=== PATIENT | male | born 1955 | race Caucasian/White ===

== ENCOUNTER 2017-01-11 20:43 | Emergency (ER) | payer BC ==
[2017-01-11] MEDS ORDERED: Sodium Chloride 0.9% 10 ML Syringe FLUSH PRN (20:57)
[2017-01-11] MEDS ORDERED: Aspirin 81 MG Tab.Chew PO ONE (20:57)
[2017-01-11] MEDS ORDERED: Sodium Chloride 0.9% 1,000 ML IV SCH (21:00)
[2017-01-11] MEDS ORDERED: Nitroglycerin 0.4 MG Tab.SL ONE (21:00)
[2017-01-11] MEDS: Nitroglycerin 0.4 MG Tab.SL SL PRN ×3 (21:01→21:12)
[2017-01-11] MEDS ORDERED: Clopidogrel 75 MG Tab PO ONE (21:02)
[2017-01-11] MEDS ORDERED: LORazepam 2 MG/ML MDV IVPUSH ONE (21:05)
[2017-01-11] MEDS ORDERED: Heparin Sodium 5,000 Units/ML Vial ONE (21:10)
[2017-01-11] MEDS ORDERED: Heparin Sodium/D5W 500 ML ONE (21:10)
[2017-01-11] MEDS ORDERED: Nitroglycerin/D5W 25 MG/250 ML BOTTLE ONE (21:17)
[2017-01-11 21:50] VITALS: BP 131/72
--- NOTE | 2017-01-11 21:55 | EDM.PDOC ---
ED HPI GENERAL MEDICAL PROBLEM - General Chief Complaint: Chest Pain Stated Complaint: CHEST PAIN Time Seen by Provider: 01/11/17 20:55 Source of Information: Reports: Patient History Limitations: Reports: No Limitations - History of Present Illness INITIAL COMMENTS - FREE TEXT/NARRATIVE: This gentleman comes in complaining of sudden onset of shortness of breath chest pain and nausea about 30 minutes ago. Also complains of some back pain which is the same as he had in 2002 prior to having stents. He was seen in clinic yesterday had an EKG which was normal but had some vague symptoms prior to this so an exercise tolerance test has been planned for a week from now. There is no history of an SD. Pain presently 10 out of 10 Chest Pain Score (Numeric/FACES): 5 - Related Data Allergies Allergy/AdvReac Type Severity Reaction Status Date / Time ezetimibe AdvReac Muscle Verified 02/08/13 08:52 [From Vytorin 10-10] Aches simvastatin AdvReac Muscle Verified 02/08/13 08:52 [From Vytorin 10-10] Aches Home Meds: Home Meds Naproxen Sodium [Aleve] 220 mg PO BID PRN 02/06/13 [History] oxyCODONE HCl/Acetaminophen [Roxicet 5-325 Tablet] 1 each PO Q4HR PRN 02/06/13 [ History] Omeprazole 20 mg PO DAILY 01/10/17 [History] amLODIPine [Norvasc] 5 mg PO DAILY 01/10/17 [History] Past Medical History Cardiovascular History: Reports: Hypertension, Stents Gastrointestinal History: Reports: GERD Social & Family History - Tobacco Use Smoking Status *Q: Never Smoker - Caffeine Use Caffeine Use: Reports: None - Alcohol Use Days Per Week of Alcohol Use: 2 Number of Drinks Per Day: 2 Total Drinks Per Week: 4 - Recreational Drug Use Recreational Drug Use: No ED ROS GENERAL - Review of Systems Review Of Systems: ROS reveals no pertinent complaints other than HPI. ED EXAM, GENERAL - Physical Exam Exam: See Below Exam Limited By: No Limitations General Appearance: Alert, WD/WN, Moderate Distress Eye Exam: Bilateral Eye: Normal Inspection Nose: Normal Inspection Throat/Mouth: Normal Oropharynx Head: Atraumatic Neck: Normal Inspection Respiratory/Chest: Lungs Clear Cardiovascular: Normal Peripheral Pulses, Regular Rate, Rhythm, No Murmur Peripheral Pulses: 2+: Radial (L), Radial (R), Posterior Tibial (L), Posterior Tibial (R) GI/Abdominal: Soft, Non-Tender Back Exam: Normal Inspection Extremities: Normal Inspection Neurological: Alert, Oriented Psychiatric: Normal Affect Skin Exam: Warm, Dry Course - Vital Signs Last Recorded V/S: Last Vital Signs Temp 37.4 C 01/11/17 21:33 Pulse 75 01/11/17 21:33 Resp 18 01/11/17 21:33 BP 133/59 L 01/11/17 21:33 Pulse Ox 95 01/11/17 21:33 - Orders/Labs/Meds Orders: Active Orders 24 hr Category Date Time Status EKG Documentation Completion [RC] ASDIRECTED Care 01/11/17 20:58 Active Chest 1V Frontal [CR] Urgent Exams 01/11/17 20:56 Taken Nitroglycerin 25 MG in D5W @ 10 MCG/MIN(250ml) Premix Med 01/11/17 22:00 Ordered Nitroglycerin/D5W [Nitroglycerin 25 MG/D5W 250 ML] 25 mg in 250 ml IV TITRATE Sodium Chloride 0.9% [Normal Saline] 1,000 ml Med 01/11/17 21:00 Active IV ASDIRECTED Sodium Chloride 0.9% [Saline Flush] Med 01/11/17 20:57 Active 10 ml FLUSH ASDIRECTED PRN Saline Lock Insert [OM.PC] Urgent Oth 01/11/17 20:56 Ordered EKG 12 Lead [EK] Urgent Ther 01/11/17 20:58 Ordered Medication Orders Sodium Chloride (Normal Saline) 1,000 mls @ 125 mls/hr IV ASDIRECTED MACHO Last Admin: 01/11/17 21:01 Dose: 125 mls/hr Nitroglycerin/Dextrose (Nitroglycerin 25 Mg/D5w 250 Ml) 25 mg in 250 mls @ 6 mls/hr IV TITRATE MACHO; 10 MCG/MIN PRN Reason: Protocol Sodium Chloride (Saline Flush) 10 ml FLUSH ASDIRECTED PRN PRN Reason: Keep Vein Open Last Admin: 01/11/17 21:04 Dose: 10 ml Labs: Laboratory Tests 01/11/17 01/11/17 Range/Units 21:10 21:10 WBC 7.4 (4.5-11.0) K/uL RBC 4.69 (4.30-5.90) M/uL Hgb 12.4 (12.0-15.0) g/dL Hct 38.8 L (40.0-54.0) % MCV 83 (80-98) fL MCH 26 L (27-31) pg MCHC 32 (32-36) % Plt Count 341 (150-400) K/uL Neut % (Auto) 42 (36-66) % Lymph % (Auto) 44 (24-44) % [place] % (Auto) 11 H (2-6) % Eos % (Auto) 2 (2-4) % Baso % (Auto) 0 (0-1) % Sodium 139 L (140-148) mmol/L Potassium 3.4 L (3.6-5.2) mmol/L Chloride 104 (100-108) mmol/L Carbon Dioxide 23 (21-32) mmol/L Anion Gap 15.4 H (5.0-14.0) mmol/L BUN 16 (7-18) mg/dL Creatinine 1.1 (0.8-1.3) mg/dL Est Cr Clr Drug Dosing 71.89 mL/min Estimated GFR (MDRD) > 60 (>60) Glucose 120 H (74-106) mg/dL Calcium 8.3 L (8.5-10.1) mg/dL Total Bilirubin 0.2 (0.2-1.0) mg/dL AST 33 (15-37) U/L ALT 38 (12-78) U/L Alkaline Phosphatase 120 H (46-116) U/L Troponin I 0.410 H* (0.000-0.056) ng/mL Total Protein 7.6 (6.4-8.2) g/dL Albumin 3.6 (3.4-5.0) g/dL Globulin 4.0 H (2.3-3.5) g/dL Albumin/Globulin Ratio 0.9 L (1.2-2.2) Meds: Medications Generic Name Dose Route Start Last Admin Trade Name Freq PRN Reason Stop Dose Admin Sodium Chloride 1,000 mls @ 125 mls/hr 01/11/17 21:00 01/11/17 21:01 Normal Saline IV 125 mls/hr ASDIRECTED MACHO Administration Nitroglycerin/Dextrose 25 mg in 250 mls @ 6 mls/hr 01/11/17 22:00 Nitroglycerin 25 Mg/D5w 250 Ml IV TITRATE MACHO Protocol 10 MCG/MIN Sodium Chloride 10 ml 01/11/17 20:57 01/11/17 21:04 Saline Flush FLUSH 10 ml ASDIRECTED PRN Administration Keep Vein Open Discontinued Medications Generic Name Dose Route Start Last Admin Trade Name Efe PRN Reason Stop Dose Admin Aspirin 324 mg 01/11/17 20:57 01/11/17 21:03 Aspirin PO 01/11/17 20:58 324 mg ONETIME ONE Administration Clopidogrel Bisulfate 600 mg 01/11/17 21:02 01/11/17 21:07 Plavix PO 01/11/17 21:03 600 mg ONETIME ONE Administration Heparin Sodium (Porcine) Confirm 01/11/17 21:10 01/11/17 21:22 Heparin Sodium Administered 01/11/17 21:11 Not Given Dose 5,000 units .ROUTE .STK-MED ONE Heparin Sodium/Dextrose Confirm 01/11/17 21:10 01/11/17 21:16 Heparin 25,000 Units In D5w 500 Ml Administered 01/11/17 21:11 25,000 units Dose Administration 500 mls @ as directed .ROUTE .STK-MED ONE Nitroglycerin/Dextrose Confirm 01/11/17 21:17 Nitroglycerin 25 Mg/D5w 250 Ml Administered 01/11/17 21:18 Dose 25 mg in 250 mls @ as directed .ROUTE .STK-MED ONE Lorazepam 1 mg 01/11/17 21:05 01/11/17 21:13 Ativan IVPUSH 01/11/17 21:06 1 mg ONETIME ONE Administration Nitroglycerin 0.4 mg 01/11/17 20:57 01/11/17 21:12 Nitrostat SL 0.4 mg Q5M PRN Administration Chest Pain Nitroglycerin Confirm 01/11/17 21:00 01/11/17 21:04 Nitrostat Administered 01/11/17 21:01 Not Given Dose 0.4 mg .ROUTE .STK-MED ONE - Re-Assessments/Exams Free Text/Narrative Re-Assessment/Exam: 01/11/17 21:52 Initial EKG shows a normal sinus rhythm but [address] depression in V3 V4 and V5. An IV was started. He received aspirin 324 mg chewed, Plavix 600 mg by mouth, Ativan 1 mg IV. Sublingual nitroglycerin 5 mg 3. His pain was substantially decreased after the nitroglycerin. A nitroglycerin drip at 10 mcg/m was started. He received heparin 4000 units bolus then 1000 units per hour drip. I spoke with the cruise agent at [place] Dr. Molina. EKGs were transmitted. He has accepted the patient in transfer. At the time of transfer the patient is pain-free. A repeat EKG shows resolution of the ST depression. Troponins come back at 0.41. Patient is hemodynamically stable when leaving the ER. Departure - Departure Time of Disposition: 21:55 Disposition: DC/Tfer to Acute Hospital 02 Reason for Transfer *Q: Primary PCI Indicated Condition: Serious Clinical Impression: Non-STEMI (non-ST elevated myocardial infarction) Referrals: PCP,None [Primary Care Provider] - - My Orders Last 24 Hours: My Active Orders 01/11/17 20:56 Chest 1V Frontal [CR] Urgent Saline Lock Insert [OM.PC] Urgent 01/11/17 20:57 Sodium Chloride 0.9% [Saline Flush] 10 ml FLUSH ASDIRECTED PRN 01/11/17 20:58 EKG Documentation Completion [RC] ASDIRECTED EKG 12 Lead [EK] Urgent 01/11/17 21:00 Sodium Chloride 0.9% [Normal Saline] 1,000 ml IV ASDIRECTED 01/11/17 22:00 Nitroglycerin 25 MG in D5W @ 10 MCG/MIN(250ml) Premix Nitroglycerin/D5W [ Nitroglycerin 25 MG/D5W 250 ML] 25 mg in 250 ml IV TITRATE - Assessment/Plan Last 24 Hours: My Active Orders 01/11/17 20:56 Chest 1V Frontal [CR] Urgent Saline Lock Insert [OM.PC] Urgent 01/11/17 20:57 Sodium Chloride 0.9% [Saline Flush] 10 ml FLUSH ASDIRECTED PRN 01/11/17 20:58 EKG Documentation Completion [RC] ASDIRECTED EKG 12 Lead [EK] Urgent 01/11/17 21:00 Sodium Chloride 0.9% [Normal Saline] 1,000 ml IV ASDIRECTED 01/11/17 22:00 Nitroglycerin 25 MG in D5W @ 10 MCG/MIN(250ml) Premix Nitroglycerin/D5W [ Nitroglycerin 25 MG/D5W 250 ML] 25 mg in 250 ml IV TITRATE
[2017-01-11] MEDS ORDERED: Heparin Sodium 5,000 Units/ML Vial IVPUSH ONE (21:58)
[2017-01-11] MEDS ORDERED: Nitroglycerin/D5W 25 MG/250 ML BOTTLE IV SCH (22:00)
[2017-01-12] MEDS ORDERED: Heparin Sodium/D5W 25,000 UNITS/500 ML BAG IV SCH (09:15)
--- NOTE | 2017-01-12 09:17 | CR ---
Heart size upper limits of normal. Left lung is clear. Calcified granulomas right lung. No focal cons olidation.
== END 2017-01-11 21:50 ==
LOC: JP.ED 20:43
DX: I21.4 Non-ST elevation (NSTEMI) myocardial infarction (principal); I10 Essential (primary) hypertension; K21.9 Gastro-esophageal reflux disease without esophagitis; Z88.8 Allergy status to other drugs, medicaments and biological substances; Z79.899 Other long term (current) drug therapy; Z95.5 Presence of coronary angioplasty implant and graft
CPT/HCPCS: 36415; 71010; 80053; 84484; 85025; 93005; 96361; 96374; 96375; 99285; A9270; J1644; J2060; J7040; J7050

== ENCOUNTER 2018-07-06 12:41 | Emergency (ER) | payer OTHER ==
--- NOTE | 2018-07-06 13:51 | EDM.PDOC ---
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 He states is been fine since then and today he had an event I was fine yesterday does not recall any events from this morning eyes not sure how the ambulance crew was called at does not remember if he breakfast or lunch does remember family members he states everything seems to be working okay no problems with vision no chest pain no shortness of breath no focal neurologic deficit chest having issues with certain memory components I can remember when he went to high school has difficulty remembering where he went to college. 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 cannot remember how old he is - Related Data Allergies Allergy/AdvReac Type Severity Reaction Status Date / Time ezetimibe AdvReac Muscle Verified 07/06/18 12:57 [From Vytorin 10-10] Aches simvastatin AdvReac Muscle Verified 07/06/18 12:57 [From Vytorin 10-10] Aches Home Meds: Home Meds Naproxen Sodium [Aleve] 220 mg PO BID PRN 02/06/13 [History] oxyCODONE HCl/Acetaminophen [Roxicet 5-325 Tablet] 1 each PO Q4HR PRN 02/06/13 [ History] Omeprazole 20 mg PO DAILY 01/10/17 [History] amLODIPine [Norvasc] 5 mg PO DAILY 01/10/17 [History] Metoprolol Tartrate 25 mg PO DAILY 07/06/18 [History] Rosuvastatin Calcium 20 mg PO BEDTIME 07/06/18 [History] Past Medical History Cardiovascular History: Reports: CAD, Hypertension, [place], Stents Gastrointestinal History: Reports: GERD Neurological History: Reports: Other (See Below) Other Neuro History: global amnesia - Past Surgical History GI Surgical History: Reports: Silas Fundoplication Social & Family History - Tobacco Use Smoking Status *Q: Never Smoker - Caffeine Use Caffeine Use: Reports: Tea - Recreational Drug Use Recreational Drug Use: No ED ROS GENERAL - Review of Systems Review Of Systems: See Below Constitutional: Reports: No Symptoms HEENT: Reports: No Symptoms Respiratory: Reports: No Symptoms Cardiovascular: Reports: No Symptoms GI/Abdominal: Reports: No Symptoms : Reports: No Symptoms Musculoskeletal: Reports: No Symptoms Skin: Reports: No Symptoms Neurological: Reports: Other (Memory problems) Psychiatric: Reports: No Symptoms ED EXAM, NEURO - Physical Exam Exam: See Below Text/Narrative:: General: Male, not in any distress, alert and oriented x3 HEENT: head is atraumatic normocephalic, eyes pupils equal round reactive to light, sclera clear no conjunctivitis appreciated. Ears tympanic membranes clear and de jesus landmarks and light reflex are present bilaterally canals are clear. Nose no septal deviation, nares are clear, no blood present. Mouth mucosa is moist and pink no erythema or exudate noted in soft palate, tongue is midline uvula is midline, dentition is intact. Neck: Supple no thyromegaly no tracheal deviation. Nodes: Cervical nodes subclavicular nodes nontender no palpable lymphadenopathy noted. Lungs: clear to auscultation bilaterally with symmetrical respirations, no adventitious noise appreciated. CV: Regular rate and rhythm S1 and S2 appreciated no murmurs rubs or gallops noted. Abdomen: Soft, nontender, no palpable masses or organomegaly appreciated, no distention no guarding bowel sounds are present, . Neuro: Cranial nerves II test with pupillary light reflex 4 mm to 2 mm bilaterally, CN III test pupillary constriction, lid elevation and eye abduction bilaterally, CN IV downward movement of eyes bilaterally, CN V good jaw movement, CN lateral deviation of the eyes bilaterally to finger movement , CN VII symmetrical smile shows teeth without difficulty, CN VIII pass finger rub to ears bilaterally, CN IX adequate voice and tone, CN X adequate voice and tone no difficulty swallowing, CN XI can shrug shoulders without difficulty, CN XII can stick tongue out without difficulty, cranial nerves II to XII intact as tested, power is 5 out 5 in upper and lower extremities, patellar reflex, biceps reflex +2 can do finger to nose without difficulty, no dysdiadochokinesis , no difficulty with rapid alternating movements can do [id number] without difficulty, , no focal neurologic deficit Skin: Warm and dry, intact Extremities: No lower extremity edema appreciated, pedal pulse is +2. Course - Vital Signs Last Recorded V/S: Last Vital Signs Temp 96.5 F 07/06/18 12:50 Pulse 86 07/06/18 12:55 Resp 20 07/06/18 12:55 BP 145/96 H 07/06/18 12:55 Pulse Ox 98 07/06/18 12:55 - Orders/Labs/Meds Orders: Active Orders 24 hr Category Date Time Status DRUG SCREEN, URINE [URCHEM] Stat Lab 07/06/18 14:41 Ordered UA W/MICROSCOPIC [URIN] Urgent Lab 07/06/18 14:41 Ordered Labs: Laboratory Tests 07/06/18 07/06/18 07/06/18 Range/Units 13:53 13:53 13:53 WBC 6.3 (4.5-11.0) K/uL RBC 5.05 (4.30-5.90) M/uL Hgb 15.1 H D (12.0-15.0) g/dL Hct 46.6 (40.0-54.0) % MCV 92 (80-98) fL MCH 30 (27-31) pg MCHC 32 (32-36) % Plt Count 263 (150-400) K/uL Neut % (Auto) 59 (36-66) % Lymph % (Auto) 29 (24-44) % [place] % (Auto) 10 H (2-6) % Eos % (Auto) 1 L (2-4) % Baso % (Auto) 1 (0-1) % Sodium 140 (140-148) mmol/L Potassium 3.8 (3.6-5.2) mmol/L Chloride 105 (100-108) mmol/L Carbon Dioxide 26 (21-32) mmol/L Anion Gap 9.5 (5.0-14.0) mmol/L BUN 12 (7-18) mg/dL Creatinine 0.9 (0.8-1.3) mg/dL Est Cr Clr Drug Dosing 85.62 mL/min Estimated GFR (MDRD) > 60 (>60) Glucose 105 (74-106) mg/dL Calcium 9.3 (8.5-10.1) mg/dL Total Bilirubin 0.4 D (0.2-1.0) mg/dL AST 35 (15-37) U/L ALT 50 (12-78) U/L Alkaline Phosphatase 110 (46-116) U/L Total Protein 7.6 (6.4-8.2) g/dL Albumin 3.8 (3.4-5.0) g/dL Globulin 3.8 H (2.3-3.5) g/dL Albumin/Globulin Ratio 1.0 L (1.2-2.2) Ethyl Alcohol < 3 mg/dL Departure - Departure Time of Disposition: 14:48 Disposition: Refer to Observation Condition: Fair Clinical Impression: Transient global amnesia - Discharge Information Referrals: PCP,None [Primary Care Provider] - Forms: ED Department Discharge - My Orders Last 24 Hours: My Active Orders 07/06/18 14:41 DRUG SCREEN, URINE [URCHEM] Stat UA W/MICROSCOPIC [URIN] Urgent - Assessment/Plan Last 24 Hours: My Active Orders 07/06/18 14:41 DRUG SCREEN, URINE [URCHEM] Stat UA W/MICROSCOPIC [URIN] Urgent Plan: Assessment Acuity = acute Site and laterality = transient global amnesia Etiology = unclear etiology Manifestations = episodic memory loss Location of injury = Home Lab values = CBC, CMP, alcohol within normal limits CT scan of the head was also negative Plan Call discussed case with hospitalist weight loss consultant at 245, because he is not return to his baseline he still somewhat confused elected to recommend admission with observation until resolution follow-up with MRI This note was dictated using [employer] voice recognition software please call with any questions on syntax or grammar.
--- NOTE | 2018-07-06 14:22 | CRLCT ---
INDICATION: Memory loss COMPARISON: None available. TECHNIQUE: CT examination of the head was performed with 3 mm thick axial sections without intravenous contrast. Images were obtained from the vertex of the skull through the skull base, and I examined the images with the brain and bone windows. Please note that all CT scans at this facility use dose modulation, iterative reconstruction, and/or weight-based dosing when appropriate to reduce radiation dose to as low as reasonably achievable. FINDINGS: : The brain is normal in appearance for the patient`s age on today`s study, with no sign of mass lesion, mass effect, hemorrhage, or edema. The ventricles and sulci are normal in appearance for the patient`s age. The visualized portions of the orbits are normal in appearance. The visualized portions of the paranasal sinuses and mastoids are clear. The osseous structures are normal in their appearance with no sign of abnormality in the skull base or calvarium. IMPRESSION: Normal noncontrast CT of the head for the patient`s age. No sign of any cerebral atrophy. Please note that all CT scans at this facility use dose modulation, iterative reconstruction, and/or weight-based dosing when appropriate to reduce radiation dose to as low as reasonably achievable. Dictated by Phil Page MD @ Jul 06 2018 2:19PM Signed by Dr. Phil Page @ Jul 06 2018 2:20PM
--- NOTE | 2018-07-06 16:07 | PCM.HP ---
H&P History of Present Illness - General Date of Service: 07/06/18 Admit Problem/Dx: Admission Diagnosis/Problem Admission Diagnosis/Problem Transient global amnesia Source of Information: Patient, Family, Old Records, Provider, RN Notes Reviewed History Limitations: Reports: No Limitations - History of Present Illness Initial Comments - Free Text/Narative: Mr. Fontenot is a 63-year-old gentleman who is admitted to observation status for further evaluation and monitoring of transient global amnesia. He felt well through the day yesterday and had no neurologic symptoms or cognitive problems. This morning though noted confusion and inability to remember the events of the day. He's had one previous episode which occurred 6 years ago and was very similar to this. Memory has improved somewhat through the day but he still remains foggy about some events from earlier and still is somewhat forgetful is for short-term memory. He denies any other neurologic symptoms or deficits. CT scan of the head without contrast was obtained in the emergency department and found to be unremarkable. Laboratory studies were obtained and are unremarkable as well. - Related Data Allergies/Adverse Reactions: Allergies Allergy/AdvReac Type Severity Reaction Status Date / Time ezetimibe AdvReac Muscle Verified 07/06/18 12:57 [From Vytorin 10-10] Aches simvastatin AdvReac Muscle Verified 07/06/18 12:57 [From Vytorin 10-10] Aches Home Medications: Home Meds Naproxen Sodium [Aleve] 220 mg PO BID PRN 02/06/13 [History] oxyCODONE HCl/Acetaminophen [Roxicet 5-325 Tablet] 1 each PO Q4HR PRN 02/06/13 [ History] Omeprazole 20 mg PO DAILY 01/10/17 [History] amLODIPine [Norvasc] 5 mg PO DAILY 01/10/17 [History] Metoprolol Tartrate 25 mg PO DAILY 07/06/18 [History] Rosuvastatin Calcium 20 mg PO BEDTIME 07/06/18 [History] Past Medical History Cardiovascular History: Reports: CAD, Hypertension, [place], Stents Gastrointestinal History: Reports: GERD Neurological History: Reports: Other (See Below) Other Neuro History: global amnesia - Past Surgical History GI Surgical History: Reports: Silas Fundoplication Social & Family History - Tobacco Use Smoking Status *Q: Never Smoker - Caffeine Use Caffeine Use: Reports: Tea - Recreational Drug Use Recreational Drug Use: No H&P Review of Systems - Review of Systems: Review Of Systems: Unable To Obtain General: Reports: ROS unobtainable (Unable to accurately obtain at this time because of his amnesia) Exam - Exam Exam: See Below - Vital Signs Vital Signs: Last Vital Signs Temp 96.5 F 07/06/18 12:50 Pulse 76 07/06/18 15:08 Resp 14 07/06/18 15:08 BP 158/89 H 07/06/18 15:08 Pulse Ox 96 07/06/18 15:08 Weight: 175 lb - Exam General: Alert, Cooperative, Mild Distress HEENT: PERRLA, Conjunctiva Clear, EACs Clear, Hearing Intact, Mucosa Moist & Tonica, Normal Nasal Septum, Posterior Pharynx Clear Neck: Supple, Trachea Midline, +2 Carotid Pulse wo Bruit Lungs: Clear to Auscultation, Normal Respiratory Effort Cardiovascular: Regular Rate, Regular Rhythm, Normal S1, Normal S2. No: Systolic Murmur, Diastolic Murmur GI/Abdominal Exam: Soft, Non-Tender, No Organomegaly, No Distention Extremities: Non-Tender, No Pedal Edema Skin: Warm, Dry, Intact Neurological: Cranial Nerves Intact, Strength Equal Bilateral, Normal Speech, Normal Tone, Sensation Intact. No: Focal Deficit Neuro Extensive - Mental Status: Alert, Normal Mood/Affect, Memory Loss-Recent Events - Patient Data Lab Results Last 24 hrs: Laboratory Results - last 24 hr 07/06/18 07/06/18 07/06/18 Range/Units 13:53 13:53 13:53 WBC 6.3 (4.5-11.0) K/uL RBC 5.05 (4.30-5.90) M/uL Hgb 15.1 H D (12.0-15.0) g/dL Hct 46.6 (40.0-54.0) % MCV 92 (80-98) fL MCH 30 (27-31) pg MCHC 32 (32-36) % Plt Count 263 (150-400) K/uL Neut % (Auto) 59 (36-66) % Lymph % (Auto) 29 (24-44) % [place] % (Auto) 10 H (2-6) % Eos % (Auto) 1 L (2-4) % Baso % (Auto) 1 (0-1) % Sodium 140 (140-148) mmol/L Potassium 3.8 (3.6-5.2) mmol/L Chloride 105 (100-108) mmol/L Carbon Dioxide 26 (21-32) mmol/L Anion Gap 9.5 (5.0-14.0) mmol/L BUN 12 (7-18) mg/dL Creatinine 0.9 (0.8-1.3) mg/dL Est Cr Clr Drug Dosing 85.62 mL/min Estimated GFR (MDRD) > 60 (>60) Glucose 105 (74-106) mg/dL Calcium 9.3 (8.5-10.1) mg/dL Total Bilirubin 0.4 D (0.2-1.0) mg/dL AST 35 (15-37) U/L ALT 50 (12-78) U/L Alkaline Phosphatase 110 (46-116) U/L Total Protein 7.6 (6.4-8.2) g/dL Albumin 3.8 (3.4-5.0) g/dL Globulin 3.8 H (2.3-3.5) g/dL Albumin/Globulin Ratio 1.0 L (1.2-2.2) Urine Color Urine Appearance Urine pH (4.5-8.0) Ur Specific [place] (1.008-1.030) Urine Protein (NEGATIVE) mg/dL Urine Glucose (UA) (NEGATIVE) mg/dL Urine Ketones (NEGATIVE) mg/dL Urine Occult Blood (NEGATIVE) Urine Nitrite (NEGAITVE) Urine Bilirubin (NEGATIVE) Urine Urobilinogen (NORMAL) mg/dL Ur Leukocyte Esterase (NEGATIVE) Urine RBC (0-5) Urine WBC (0-5) Ur Epithelial Cells Amorphous Sediment Urine Bacteria Urine Mucus Urine Opiates Screen (NEGATIVE) Ur Oxycodone Screen (NEGATIVE) Urine Methadone Screen (NEGATIVE) Ur Propoxyphene Screen (NEGATIVE) Ur Barbiturates Screen (NEGATIVE) Ur Tricyclics Screen (NEGATIVE) Ur Phencyclidine Scrn (NEGATIVE) Ur Amphetamine Screen (NEGATIVE) U Methamphetamines Scrn (NEGATIVE) Urine MDMA Screen (NEGATIVE) U Benzodiazepines Scrn (NEGATIVE) U Cocaine Metab Screen (NEGATIVE) U Marijuana (THC) Screen (NEGATIVE) Ethyl Alcohol < 3 mg/dL 07/06/18 07/06/18 Range/Units 14:41 14:41 WBC (4.5-11.0) K/uL RBC (4.30-5.90) M/uL Hgb (12.0-15.0) g/dL Hct (40.0-54.0) % MCV (80-98) fL MCH (27-31) pg MCHC (32-36) % Plt Count (150-400) K/uL Neut % (Auto) (36-66) % Lymph % (Auto) (24-44) % [place] % (Auto) (2-6) % Eos % (Auto) (2-4) % Baso % (Auto) (0-1) % Sodium (140-148) mmol/L Potassium (3.6-5.2) mmol/L Chloride (100-108) mmol/L Carbon Dioxide (21-32) mmol/L Anion Gap (5.0-14.0) mmol/L BUN (7-18) mg/dL Creatinine (0.8-1.3) mg/dL Est Cr Clr Drug Dosing mL/min Estimated GFR (MDRD) (>60) Glucose (74-106) mg/dL Calcium (8.5-10.1) mg/dL Total Bilirubin (0.2-1.0) mg/dL AST (15-37) U/L ALT (12-78) U/L Alkaline Phosphatase (46-116) U/L Total Protein (6.4-8.2) g/dL Albumin (3.4-5.0) g/dL Globulin (2.3-3.5) g/dL Albumin/Globulin Ratio (1.2-2.2) Urine Color Yellow Urine Appearance Clear Urine pH 8.0 (4.5-8.0) Ur Specific [place] 1.005 L (1.008-1.030) Urine Protein Negative (NEGATIVE) mg/dL Urine Glucose (UA) Normal (NEGATIVE) mg/dL Urine Ketones Negative (NEGATIVE) mg/dL Urine Occult Blood Negative (NEGATIVE) Urine Nitrite Negative (NEGAITVE) Urine Bilirubin Negative (NEGATIVE) Urine Urobilinogen Normal (NORMAL) mg/dL Ur Leukocyte Esterase Negative (NEGATIVE) Urine RBC 0-5 (0-5) Urine WBC Not seen (0-5) Ur Epithelial Cells Not seen Amorphous Sediment Not seen Urine Bacteria Not seen Urine Mucus Not seen Urine Opiates Screen Negative (NEGATIVE) Ur Oxycodone Screen Negative (NEGATIVE) Urine Methadone Screen Negative (NEGATIVE) Ur Propoxyphene Screen Negative (NEGATIVE) Ur Barbiturates Screen Negative (NEGATIVE) Ur Tricyclics Screen Negative (NEGATIVE) Ur Phencyclidine Scrn Negative (NEGATIVE) Ur Amphetamine Screen Negative (NEGATIVE) U Methamphetamines Scrn Negative (NEGATIVE) Urine MDMA Screen Negative (NEGATIVE) U Benzodiazepines Scrn Negative (NEGATIVE) U Cocaine Metab Screen Negative (NEGATIVE) U Marijuana (THC) Screen Negative (NEGATIVE) Ethyl Alcohol mg/dL Result Diagrams: 07/06/18 13:53 07/06/18 13:53 *Q Meaningful Use (ADM) - VTE Risk Assess *Q Each Risk Factor Represents 1 Point: None Total Score 1 Point Risk Factors: 0 Each Risk Factor Represents 2 Points: Age 60 - 74 Years Total Score 2 Point Risk Factors: 2 Each Risk Factor Represents 3 Points: None Total Score 3 Point Risk Factors: 0 Each Risk Factor Represents 5 Points: None Total Score 5 Point Risk Factors: 0 Venous Thromboembolism Risk Factor Score *Q: 2 Problem List Initiated/Reviewed/Updated: Yes Orders Last 24hrs: Active Orders 24 hr Category Date Time Status Patient Status Manage Transfer [TRANSFER] Routine ADT 07/06/18 16:02 Active Resuscitation Status Routine Resus Stat 07/06/18 16:03 Ordered Assessment/Plan Comment:: ASSESSMENT AND PLAN TRANSIENT GLOBAL AMNESIA-started this morning, similar to previous episode that he had 6 years ago. He is improved moderately since this morning still somewhat foggy as far as details of the day and continues to experience some short-term memory loss. No other focal neurologic findings on exam or by history. CT scan of the head without contrast unremarkable -Observation admission -Neuro checks -MRI in a.m. CORONARY ARTERY DISEASE-status post previous angioplasties with stent placements , currently asymptomatic -Continue outpatient medications MAINTENANCE ISSUES -DVT prophylaxis; ambulation -GI prophylaxis; continue outpatient PPI therapy -Ortega catheter; not indicated -Nutrition; low-fat cardiac diet -Nicotine dependence; not required CODE STATUS-FULL CODE ADMISSION STATUS-this patient will be admitted to observation status, expect no more than a one night hospital stay for evaluation and management of problems as outlined above. DISPOSITION-anticipate discharge to home after the hospital stay. PRIMARY CARE PROVIDER-
[2018-07-06 16:54] VITALS: BP 162/84
[2018-07-07] MEDS ORDERED: LORazepam 2 MG/ML SDV IVPUSH ONE (08:00)
== END 2018-07-06 17:49 ==
LOC: JP.ED 12:41 → JP.MS 16:02 → UNDOADMOB 16:02 → JP.ED 17:49
DX: G45.4 Transient global amnesia (principal); I25.10 Atherosclerotic heart disease of native coronary artery without angina pectoris; I10 Essential (primary) hypertension; I25.2 Old myocardial infarction; K21.9 Gastro-esophageal reflux disease without esophagitis; Z88.8 Allergy status to other drugs, medicaments and biological substances; Z95.5 Presence of coronary angioplasty implant and graft; Z79.899 Other long term (current) drug therapy
CPT/HCPCS: 36415; 70450; 80053; 80305-QW; 81001; 85025; 99285-25; G0480